=== PATIENT | female | born 1995 | race Two or more races ===

== ENCOUNTER 2025-01-09 09:02 | Outpatient (CLI) | payer BC | END 2025-01-09 17:00 | disposition home or self-care (01) | LOC: LAB 09:02 | DX: N97.9 Female infertility, unspecified (principal); Z31.41 Encounter for fertility testing | CPT/HCPCS: 36415; 84443; 84702 ==

== ENCOUNTER 2025-01-16 12:11 | Outpatient (CLI) | payer BC | END 2025-01-16 17:00 | disposition home or self-care (01) | LOC: LAB 12:11 | DX: O09.01 Supervision of pregnancy with history of infertility, first trimester (principal); Z3A.00 Weeks of gestation of pregnancy not specified | CPT/HCPCS: 36415; 84702 ==

== ENCOUNTER 2025-02-15 13:24 | Outpatient (CLI) | payer BC | END 2025-02-15 17:00 | disposition home or self-care (01) | LOC: LAB 13:24 | DX: O02.1 Missed abortion (principal) | CPT/HCPCS: 36415; 84702 ==